=== PATIENT | male | born 1960 | race Caucasian/White ===

== ENCOUNTER → 2025-05-15 10:58 | Outpatient (CLI) | payer BC, SELFPAY ==
[2025-05-15 13:09] LABS: Prostate Specific Antigen 0.520 ng/mL (0.10-4.00)
[2025-05-15 15:27] LABS: Alanine Aminotransferase 24 IU/L (<50); Albumin 4.5 g/dL (3.5-5.0); Albumin Globulin Ratio 1.5 (1.0-2.8); Alkaline Phosphatase 66 U/L (38-126); Blood Urea Nitrogen 20 mg/dL (9-20); Calcium 9.3 mg/dL (8.4-10.2); Carbon Dioxide 23 mmol/L (22-32); Chloride 103 mmol/L (98-107); Estimated Glomerular Filt Rate > 60 mL/min (>60); Globulin 3.0 g/dL (1.7-4.1); Glucose 123 mg/dL (70-99); HEMOLYSIS < 15 (0-50); Potassium 4.1 mmol/L (3.4-5.1); Sodium 136 mmol/L (137-145); Total Protein 7.5 g/dL (6.3-8.2)
== END ==
PROVIDERS: PCP Family Medicine; Referring Provider Family Medicine; Visit Provider Family Medicine
DX: Z12.5 Encounter for screening for malignant neoplasm of prostate (principal); Z13.6 Encounter for screening for cardiovascular disorders; R73.09 Other abnormal glucose; I48.91 Unspecified atrial fibrillation; L30.9 Dermatitis, unspecified; Z82.0 Family history of epilepsy and other diseases of the nervous system
CPT/HCPCS: 36415; 80053; 84153